=== PATIENT | female | born 1980 | race Caucasian/White ===

== ENCOUNTER 2017-01-08 16:14 | Emergency (ER) | payer BC ==
--- NOTE | 2017-01-08 17:02 | Emergency Department Record ---
History of Present Illness - General Chief complaint: ENT Stated complaint: GLANDS & NOSE SWOLLEN Time Seen by Provider: 01/08/17 16:53 Source: Patient Mode of Arrival: Ambulatory Limitations: No limitations - History of Present Illness Initial comments: 36 yo female presents with initially nasal swelling and erythema. Several days ago she developed a tiny pimple next to a nose ring. no pus came out. She removed the nose ring 2 days ago. The swelling started at that point in time. She was seen in a [facility] and was given a steroid shot and Amoxicillin. She is improved today but it persists with swollen glands. No vision changes. MD complaint: Other (Nasal) Onset/Timin -: Days(s) Location: Nose, Other Severity: Mild Severity scale (1-10): 4 Quality: Aching Consistency: Constant Improves with: None Worsens with: None Associated Symptoms: Other - Related Data Home Medications Medication Instructions Recorded Confirmed Last Taken Bupropion HCl [Bupropion Xl] 150 mg PO DAILY 02/02/16 01/08/17 01/08/17 Duloxetine HCl [Duloxetine HCl] 60 mg PO DAILY 02/02/16 01/08/17 01/08/17 Lansoprazole [Prevacid] 15 mg PO DAILY 01/08/17 01/08/17 01/08/17 Previous Rx's Medication Instructions Recorded Clindamycin HCl [Cleocin HCl] 300 mg PO QID #28 capsule 01/08/17 Allergies Allergy/AdvReac Type Severity Reaction Status Date / Time sumatriptan [From Imitrex] Allergy HYPERSENSIT Verified 01/08/17 16:49 IVITY sumatriptan succinate Allergy HYPERSENSIT Verified 01/08/17 16:49 [From Imitrex] IVITY Travel Screening - Travel/Exposure Within Last 30 Days Have you traveled within the last 30 days?: No Review of Systems Constitutional: Denies: Chills, Fever, Malaise, Weakness Eyes: Denies: Eye discharge ENT: Denies: Congestion, Ear pain, Hearing loss, Throat pain Respiratory: Denies: Cough, Hemoptysis, Stridor, Wheezes Cardiovascular: Denies: Chest pain, Palpitations, Syncope Endocrine: Denies: Fatigue Gastrointestinal: Denies: Abdominal pain, Diarrhea, Nausea, Vomiting Musculoskeletal: Denies: Arthralgia, Back pain, Joint swelling, Myalgia Skin: Reports: As per HPI, Change in color, Rash. Denies: Bruising Neurological: Denies: Confusion, Headache Psychiatric: Denies: Anxiety Hematological/Lymphatic: Denies: Blood Clots, Easy bleeding, Easy bruising Past Medical History - SOCIAL HISTORY Smoking Status: Former smoker Alcohol Use: Occassional Drug Use: None - RESPIRATORY Hx Respiratory Disorders: No - CARDIOVASCULAR Hx Cardio Disorders: No - NEURO Hx Neuro Disorders: No - GI Hx GI Disorders: No - Hx Genitourinary Disorders: No - ENDOCRINE Hx Endocrine Disorders: Yes Hx Thyroid Disease: Yes (pam) - MUSCULOSKELETAL Hx Musculoskeletal Disorders: No - PSYCH Hx Psych Problems: Yes Hx Anxiety: Yes Hx Depression: Yes - HEMATOLOGY/ONCOLOGY Hx Hematology/Oncology Disorders: Yes Hx Clotting Problems: Yes (Factor V) Family Medical History Any Significant Family History?: Yes Hx Cancer: Father, Grandparents Physical Exam - General General Appearance: Alert, Oriented x3, Cooperative, No acute distress Limitations: No limitations - Head Head exam: Normal inspection - Eye Eye exam: Normal appearance, PERRL. negative: Conjunctival injection, Periorbital swelling, Periorbital tenderness, Scleral icterus - ENT ENT exam: Mucous membranes moist, Normal orophraynx Ear exam: Normal external inspection. negative: External canal tenderness Nasal Exam: Other (mild general soft tissue swelling of the nose, no fluctuance) . negative: Normal inspection, Active bleeding, Discharge, Dried blood, Foreign body, Sinus tenderness Mouth exam: Normal external inspection, Tongue normal Teeth exam: Normal inspection. negative: Dental caries Throat exam: Normal inspection. negative: Tonsillar erythema, Tonsillomegaly, Tonsillar exudate, R peritonsillar mass, L peritonsillar mass - Neck Neck exam: Lymphadenopathy (bialteral anterior cervical adenopathy, tendern), Tenderness. negative: Meningismus - Respiratory Respiratory exam: Normal lung sounds bilaterally. negative: Respiratory distress - Cardiovascular Cardiovascular Exam: Regular rate, Normal rhythm, Normal heart sounds - GI/Abdominal GI/Abdominal exam: Soft - Rectal Rectal exam: Deferred - exam: Deferred - Extremities Extremities exam: Normal inspection, Full ROM, Normal capillary refill. negative: Tenderness - Back Back exam: Reports: Normal inspection, Full ROM. Denies: Muscle spasm, Rash noted, Tenderness - Neurological Neurological exam: Alert, Normal gait, Oriented X3 - Psychiatric Psychiatric exam: Normal affect, Normal mood - Skin Skin exam: Dry, Intact, Normal color, Warm Course Vital Signs 01/08/17 16:43 Temperature 98.3 F Pulse Rate 80 Respiratory 16 Rate Blood Pressure 133/85 Pulse Ox 98 - Reevaluation(s) Reevaluation #1: The labs were reviewed No acute changes of the CBC or BMP The nasal swab for MRSA was sent The IV Clindamycin was completed. 01/08/17 17:53 Medical Decision Making - Lab Data Result diagrams: 01/08/17 17:10 01/08/17 17:10 Disposition Disposition: Discharge Clinical Impression: Cellulitis of face Disposition: Home, Self-Care Condition: (1) Good Instructions: Cellulitis (ED) Additional Instructions: Return at 2am for a second dose of Clindamycin Return sooner if worse or any new concerns Prescriptions: Clindamycin HCl [Cleocin HCl] 300 mg PO QID #28 capsule Forms: Patient Portal Access Time of Disposition: 18:03
[2017-01-08] MEDS ORDERED: CLINDAMYCIN 600MG/50ML PREMIX 600 MG in DEXTROSE 1 BAG IV ONE (17:03)
[2017-01-08 17:38] LABS: BASO % 0.4 % (0-6); EOS % 3.3 % (0-6); GRAN % 47.7 % (47-80); HEMATOCRIT 41.1 % (35.0-47.0); LYMPH % 37.6 % (16-45); MEAN CELL VOLUME 92.4 fl (81-97); MEAN CORPUSCULAR HEMOGLOBIN 31.5 pg (27-33); MEAN CORPUSCULAR HGB CONC 34.1 g/dl (32-36); MEAN PLATELET VOLUME 9.6 fl (7.4-10.4); PLATELET COUNT 405 K/uL (130-400); RED BLOOD COUNT 4.45 M/uL (3.80-5.40); RED CELL DISTRIBUTION WIDTH 13.8 % (11.5-14.5); WHITE BLOOD COUNT W/O DIFF 8.1 K/uL (4.2-12.2)
[2017-01-08 17:49] LABS: ANION GAP 15.6 (7-16); BLOOD UREA NITROGEN 9 mg/dL (7-17); CARBON DIOXIDE 23.4 mmol/L (22-30); CREATININE 0.7 mg/dL (0.52-1.04); EST GLOMERULAR FILTRATION RATE > 60 ml/min; GLUCOSE,RANDOM 82 mg/dL (70-110)
[2017-01-08] MEDS ORDERED: CLINDAMYCIN 150 MG CAP PO ONE (18:02)
== END 2017-01-08 18:15 | disposition home or self-care (01) ==
LOC: ER 16:14
DX: J34.0 Abscess, furuncle and carbuncle of nose (principal); R59.0 Localized enlarged lymph nodes
CPT/HCPCS: 80048; 85025; 96365; 99284

== ENCOUNTER 2017-01-09 02:02 | Emergency (ER) | payer BC ==
[2017-01-09] MEDS ORDERED: CLINDAMYCIN 600MG/50ML PREMIX 600 MG in DEXTROSE 1 BAG IV ONE (02:11)
--- NOTE | 2017-01-09 02:20 | Emergency Department Record ---
History of Present Illness - General Chief Complaint: Recheck - Other Stated Complaint: 2ND ROUND ANTIBIOTICS Time Seen by Provider: 01/09/17 02:09 Source: Patient Mode of arrival: Ambulatory Limitations: No limitations - History of Present Illness Initial Comments: pt here for recheck and repeat antibiotics for facial infection. pt states she is much worse. MD Complaint: Needs IV antibiotics, Wound re-check Onset/Timin -: Days(s) Initial Visit For: Cellulitis Returns Today for: Cellulitis follow-up Symptoms Since Prior Visit: Worsening redness, Worsening swelling Associated Symptoms: None Treatments Prior to Arrival: Given antibiotics on initial visit - Related Data Home Medications Medication Instructions Recorded Confirmed Last Taken Bupropion HCl [Bupropion Xl] 150 mg PO DAILY 02/02/16 01/08/17 01/08/17 Duloxetine HCl [Duloxetine HCl] 60 mg PO DAILY 02/02/16 01/08/17 01/08/17 Lansoprazole [Prevacid] 15 mg PO DAILY 01/08/17 01/08/17 01/08/17 Previous Rx's Medication Instructions Recorded Clindamycin HCl [Cleocin HCl] 300 mg PO QID #28 capsule 01/08/17 Allergies Allergy/AdvReac Type Severity Reaction Status Date / Time sumatriptan [From Imitrex] Allergy HYPERSENSIT Verified 01/09/17 02:13 IVITY sumatriptan succinate Allergy HYPERSENSIT Verified 01/09/17 02:13 [From Imitrex] IVITY Review of Systems Reviewed: No additional complaints except as noted below Constitutional: Reports: As per HPI. Denies: Chills, Fever, Malaise, Night sweats, Weakness, Weight change Eyes: Reports: As per HPI. Denies: Eye discharge, Eye pain, Photophobia, Vision change ENT: Reports: As per HPI. Denies: Congestion, Dental pain, Ear pain, Epistaxis , Hearing loss, Throat pain Respiratory: Reports: As per HPI. Denies: Cough, Dyspnea, Hemoptysis, Stridor, Wheezes Cardiovascular: Reports: As per HPI. Denies: Arrhythmia, Chest pain, Dyspnea on exertion, Edema, Murmurs, Orthopnea, Palpitations, Paroxysmal nocturnal dyspnea, Rheumatic Fever, Syncope Endocrine: Reports: As per HPI. Denies: Fatigue, Heat or cold intolerance, Polydipsia, Polyuria Gastrointestinal: Reports: As per HPI. Denies: Abdominal pain, Constipation, Diarrhea, Hematemesis, Hematochezia, Melena, Nausea, Vomiting Genitourinary: Reports: As per HPI. Denies: Abnormal menses, Discharge, Dyspareunia, Dysuria, Frequency, Hematuria, Incontinence, Retention, Urgency Musculoskeletal: Reports: As per HPI. Denies: Arthralgia, Back pain, Gout, Joint swelling, Myalgia, Neck pain Skin: Reports: As per HPI. Denies: Bruising, Change in color, Change in hair/ nails, Lesions, Pruritus, Rash Neurological: Reports: As per HPI. Denies: Abnormal gait, Confusion, Headache, Numbness, Paresthesias, Seizure, Tingling, Tremors, Vertigo, Weakness Psychiatric: Reports: As per HPI. Denies: Anxiety, Auditory hallucinations, Depression, Homicidal thoughts, Suicidal thoughts, Visual hallucinations Hematological/Lymphatic: Reports: As per HPI. Denies: Anemia, Blood Clots, Easy bleeding, Easy bruising, Swollen glands Past Medical History - SOCIAL HISTORY Smoking Status: Former smoker Drug Use: None - RESPIRATORY Hx Respiratory Disorders: No - CARDIOVASCULAR Hx Cardio Disorders: No - NEURO Hx Neuro Disorders: No - GI Hx GI Disorders: No - Hx Genitourinary Disorders: No - ENDOCRINE Hx Endocrine Disorders: Yes Hx Thyroid Disease: Yes (pam) - MUSCULOSKELETAL Hx Musculoskeletal Disorders: No - PSYCH Hx Psych Problems: Yes Hx Anxiety: Yes Hx Depression: Yes - HEMATOLOGY/ONCOLOGY Hx Hematology/Oncology Disorders: Yes Hx Clotting Problems: Yes (Factor V) Family Medical History Hx Cancer: Father, Grandparents Physical Exam - General General Appearance: Alert, Oriented x3, Cooperative, Mild distress - Head Head exam: Normal inspection - Eye Eye exam: Normal appearance, PERRL, EOMI Pupils: Normal accommodation - ENT ENT exam: Normal exam, Mucous membranes moist, Normal external ear exam, Normal orophraynx Ear exam: Normal external inspection. negative: External canal tenderness Nasal Exam: Sinus tenderness, Other (swelling and erythema). negative: Discharge Mouth exam: Normal external inspection, Tongue normal Teeth exam: Normal inspection. negative: Dental caries Throat exam: Normal inspection. negative: Tonsillar erythema, Tonsillar exudate - Neck Neck exam: Normal inspection, Full ROM. negative: Tenderness - Respiratory Respiratory exam: Normal lung sounds bilaterally. negative: Respiratory distress - Cardiovascular Cardiovascular Exam: Regular rate, Normal rhythm, Normal heart sounds - GI/Abdominal GI/Abdominal exam: Soft, Normal bowel sounds. negative: Tenderness - Rectal Rectal exam: Deferred - exam: Deferred - Extremities Extremities exam: Normal inspection, Full ROM, Normal capillary refill. negative: Tenderness - Back Back exam: Reports: Normal inspection, Full ROM. Denies: Muscle spasm, Rash noted, Tenderness - Neurological Neurological exam: Alert, CN II-XII intact, Normal gait, Oriented X3 - Psychiatric Psychiatric exam: Normal affect, Normal mood - Skin Skin exam: Dry, Intact, Normal color, Warm Course - Reevaluation(s) Reevaluation #1: 01/09/17 03:17 ct shows facial swelling and paranasal stranding, no abscess formation Reevaluation #2: 01/09/17 03:19 pt looks and feels better Medical Decision Making - Lab Data Result diagrams: 01/09/17 02:30 Disposition Disposition: Discharge Clinical Impression: Facial cellulitis Disposition: Home, Self-Care Condition: (1) Good Instructions: Cellulitis (ED) Additional Instructions: return at 10am without fail. return sooner if worse. sleep elevated Forms: Patient Portal Access
[2017-01-09 02:35] LABS: BASO % 0.7 % (0-6); EOS % 4.8 % (0-6); GRAN % 41.7 % (47-80); HEMATOCRIT 38.3 % (35.0-47.0); HEMOGLOBIN 12.8 gm/dl (11.6-16.0); LYMPH % 39.5 % (16-45); MEAN CORPUSCULAR HEMOGLOBIN 31.1 pg (27-33); MEAN CORPUSCULAR HGB CONC 33.4 g/dl (32-36); MONO % 13.3 % (0-9); PLATELET COUNT 275 K/uL (130-400); RED BLOOD COUNT 4.12 M/uL (3.80-5.40); RED CELL DISTRIBUTION WIDTH 13.6 % (11.5-14.5); WHITE BLOOD COUNT W/O DIFF 7.5 K/uL (4.2-12.2)
--- NOTE | 2017-01-13 14:31 | CT SCAN REPORT ---
EXAM: CT SCAN OF THE FACE WITH CONTRAST HISTORY: EVALUATE FOR INFECTION. TECHNIQUE: CT scan of the face was provided utilizing 100 ml of Omnipaque 300 contrast. FINDINGS: Bone windows demonstrate no CT evidence of a fracture or dislocation of the facial bones. The bilateral maxillary sinuses demonstrate minimal mucosal thickening. Bilateral frontal, ethmoid, and sphenoid sinuses are well pneumatized and well aerated. No significant nasal septal deviation is noted. The ostiomeatal units are patent. The bilateral globes and orbits are intact. There is mild soft tissue swelling identified within the right facial region. This finding may represent cellulitis. IMPRESSION: 1. FINDINGS ARE SUGGESTIVE OF MILD FACIAL CELLULITIS OVERLYING THE RIGHT FACE. CLINICAL CORRELATION IS RECOMMENDED. BILATERAL GLOBES AND ORBITS ARE INTACT. 2. MINIMAL MUCOSAL THICKENING WITHIN THE MAXILLARY SINUSES SUGGEST POSSIBLE MILD CHRONIC SINUSITIS. CLINICAL CORRELATION IS RECOMMENDED. JOB NUMBER: [id number] MTDD
== END 2017-01-09 03:33 | disposition home or self-care (01) ==
LOC: ER 02:02
DX: L03.211 Cellulitis of face (principal)
CPT/HCPCS: 99284 ×2; 96365; 85025; 70487; Q9967

== ENCOUNTER 2017-01-09 09:51 | Emergency (ER) | payer BC ==
--- NOTE | 2017-01-09 10:04 | Emergency Department Record ---
History of Present Illness - General Chief Complaint: Wound, check Stated Complaint: RE-CHECK Time Seen by Provider: 01/09/17 09:58 Source: Patient Mode of arrival: Ambulatory Limitations: No limitations - History of Present Illness Initial Comments: 36 yo female presents for repeat antibiotics. She has a cellulitis of the nasal area. She was seen in a [facility] care then the ED yesterday. She received IV clindamycin. She had a CT scan on the second visit that demonstrated mild stranding of the right nasal area. She reports improvement this morning with less redness and swelling. less pain. Improved swollen glands. Complaint: Needs IV antibiotics -: Days(s) Returns Today for: Needs IV antibiotics, Wound recheck Associated Symptoms: None - Related Data Home Medications Medication Instructions Recorded Confirmed Last Taken Bupropion HCl [Bupropion Xl] 150 mg PO DAILY 02/02/16 01/08/17 01/08/17 Duloxetine HCl [Duloxetine HCl] 60 mg PO DAILY 02/02/16 01/08/17 01/08/17 Lansoprazole [Prevacid] 15 mg PO DAILY 01/08/17 01/08/17 01/08/17 Previous Rx's Medication Instructions Recorded Clindamycin HCl [Cleocin HCl] 300 mg PO QID #28 capsule 01/08/17 Allergies Allergy/AdvReac Type Severity Reaction Status Date / Time sumatriptan [From Imitrex] Allergy HYPERSENSIT Verified 01/09/17 02:13 IVITY sumatriptan succinate Allergy HYPERSENSIT Verified 01/09/17 02:13 [From Imitrex] IVITY Review of Systems Constitutional: Denies: Chills, Fever, Malaise, Weakness Eyes: Denies: Eye discharge ENT: Reports: Other. Denies: As per HPI, Congestion, Dental pain, Ear pain, Throat pain Respiratory: Denies: Cough, Hemoptysis Cardiovascular: Denies: Chest pain Endocrine: Denies: Fatigue Gastrointestinal: Denies: Abdominal pain, Diarrhea, Nausea, Vomiting Genitourinary: Denies: Dysuria Musculoskeletal: Denies: Arthralgia, Back pain, Myalgia Skin: Reports: As per HPI, Change in color, Rash. Denies: Bruising Neurological: Denies: Headache Psychiatric: Denies: Anxiety Hematological/Lymphatic: Reports: As per HPI, Swollen glands. Denies: Blood Clots, Easy bleeding, Easy bruising Past Medical History - SOCIAL HISTORY Smoking Status: Former smoker Drug Use: None - RESPIRATORY Hx Respiratory Disorders: No - CARDIOVASCULAR Hx Cardio Disorders: No - NEURO Hx Neuro Disorders: No - GI Hx GI Disorders: No - Hx Genitourinary Disorders: No - ENDOCRINE Hx Endocrine Disorders: Yes Hx Thyroid Disease: Yes (pam) - MUSCULOSKELETAL Hx Musculoskeletal Disorders: No - PSYCH Hx Psych Problems: Yes Hx Anxiety: Yes Hx Depression: Yes - HEMATOLOGY/ONCOLOGY Hx Hematology/Oncology Disorders: Yes Hx Clotting Problems: Yes (Factor V) Family Medical History Hx Cancer: Father, Grandparents Physical Exam - General General Appearance: Alert, Oriented x3, Cooperative, No acute distress Limitations: No limitations - Head Head exam: Atraumatic. negative: Normocephalic, Normal inspection Image of Face/Head: 1 - mild swelling and erythema, no fluctuance, improved significantly from prior exam of mine - Eye Eye exam: Normal appearance, PERRL. negative: Conjunctival injection, Periorbital swelling, Periorbital tenderness - ENT ENT exam: negative: Normal exam Ear exam: Normal external inspection. negative: External canal tenderness Nasal Exam: negative: Normal inspection, Active bleeding, Discharge, Dried blood , Sinus tenderness Mouth exam: Normal external inspection, Tongue normal Teeth exam: Normal inspection. negative: Dental caries Throat exam: Normal inspection. negative: Tonsillar erythema, Tonsillar exudate - Neck Neck exam: Normal inspection, Full ROM, Lymphadenopathy (very smal anterior cervical). negative: Tenderness - Respiratory Respiratory exam: Normal lung sounds bilaterally. negative: Respiratory distress - Cardiovascular Cardiovascular Exam: Regular rate, Normal rhythm, Normal heart sounds - Rectal Rectal exam: Deferred - exam: Deferred - Extremities Extremities exam: Normal inspection - Neurological Neurological exam: Alert, Normal gait, Oriented X3. negative: Altered - Psychiatric Psychiatric exam: Normal affect, Normal mood - Skin Skin exam: Erythema Course - Reevaluation(s) Reevaluation #1: The patient is much improved The IV will be discontinued She will be on Clindamycin QID oral We discussed follow up and reasons to return to the ED 01/09/17 10:06 Disposition Disposition: Discharge Clinical Impression: Facial cellulitis Disposition: Home, Self-Care Condition: (1) Good Instructions: Cellulitis (ED) Additional Instructions: return if worse, swelling, fever, red or concerns call your doctor for a recheck first of the week Forms: Patient Portal Access Time of Disposition: 10:07
[2017-01-09] MEDS ORDERED: CLINDAMYCIN 600MG/50ML PREMIX 600 MG in DEXTROSE 1 BAG IV ONE (10:42)
== END 2017-01-09 10:46 | disposition home or self-care (01) ==
LOC: ER 09:51
DX: L03.211 Cellulitis of face (principal)
CPT/HCPCS: 96374; 99282